=== PATIENT | male | born 2000 | race Caucasian/White ===

== ENCOUNTER 2020-06-15 17:57 | Emergency (ER) | payer OTHER ==
[~2020-06-15] VITALS: Ht 172.7 cm; Wt 68.0 kg
[2020-06-15 18:00] VITALS: BP 128/79; Ht 172.7 cm; Wt 68.0 kg
== END 2020-06-15 19:52 | disposition home or self-care (01) ==
LOC: ED 17:57
DX: S60.415A Abrasion of left ring finger, initial encounter (principal); W25.XXXA Contact with sharp glass, initial encounter; Y93.G1 Activity, food preparation and clean up; Y92.89 Other specified places as the place of occurrence of the external cause; Y99.0 Civilian activity done for income or pay
CPT/HCPCS: 90715; Q0092